=== PATIENT | male | born 1990 | race Caucasian/White ===

== ENCOUNTER 2016-09-24 06:50 | Emergency (ER) | payer BC ==
[~2016-09-24] VITALS: Ht 195.6 cm; Wt 112.1 kg
[2016-09-24] MEDS ORDERED: HYDROmorphone 1 MG/ML (DILAUDID) SYRINGE IV ONE ×2 (07:30→08:05)
[2016-09-24] MEDS ORDERED: ONDANSETRON 2 MG/ML (Z0FRAN) 2 ML VIAL IV ONE (07:30)
[2016-09-24 07:37] LABS: BASOPHILS % (AUTO) 0 % (0-2); EOSINOPHILS # (AUTO) 0.1 10^3uL; EOSINOPHILS % (AUTO) 2 % (0-4); MEAN CORPUSCULAR HEMOGLOBIN 29.7 PG (26.0-34.0); MEAN CORPUSCULAR VOLUME 84 FL (80-100); MEAN PLATELET VOLUME 10.1 FL (6.0-9.5); MONOCYTES # (AUTO) 0.6 X10^3; MONOCYTES % (AUTO) 12 % (3-11); NEUTROPHILS # (AUTO) 2.2 X10^3; NEUTROPHILS % (AUTO) 45 % (51-67); PLATELET COUNT 211 10^3uL (150-450); WHITE BLOOD COUNT 4.77 10^3uL (4.0-11.0)
[2016-09-24 07:38] LABS: MEAN CORPUSCULAR HGB CONC 35.5 g/dL (31.0-37.0)
[2016-09-24 07:38] LABS: BILIRUBIN,URINE Negative (Negative); CLARITY,URINE Clear; COLOR,URINE Yellow; GLUCOSE, URINE (UA) Negative (Negative); LEUKOCYTE ESTERASE ,URINE Negative (Negative); PH,URINE 6.5 (5.0 - 8.0); UROBILINOGEN,URINE 0.2 mg/dL (0.2-1.0)
[2016-09-24 07:42] LABS: URINE CENTRIFUGED VOLUME 12 mL
[2016-09-24] MEDS ORDERED: SODIUM CHLORIDE FLUSH 3 ML SYR IV ONE (07:45)
[2016-09-24 07:47] LABS: ALBUMIN 4.7 g/dL (3.4-5.0); ANION GAP 17.6 MEQ/L (3-15); CALCULATED IONIZED CALCIUM 3.9 mg/dL (3.8-4.6); TOTAL PROTEIN 8.2 g/dL (6.4-8.5)
[2016-09-24] MEDS: SODIUM CHLORIDE FLUSH 10 ML SYR IV PRN ×2 (07:56→08:39)
[2016-09-24] MEDS ORDERED: KETOROLAC 30 MG/ML (TORADOL) 1 ML VIAL IV ONE (08:40)
[2016-09-24 08:57] VITALS: BP 126/74
== END 2016-09-24 09:35 | disposition home or self-care (01) ==
LOC: ED 06:54
DX: N13.2 Hydronephrosis with renal and ureteral calculous obstruction (principal)
CPT/HCPCS: 36415; 74176; 80053; 81003; 81015; 85025; 96361; 96374; 96375; 99284; J1170; J1885; J2405; J7030; 99283